=== PATIENT | female | born 1995 | race African-American/Black ===

== ENCOUNTER 2021-03-18 19:59 | Emergency (ER) | payer OTHER ==
[~2021-03-18] VITALS: Ht 152.4 cm; Wt 65.2 kg
[2021-03-18 20:07] VITALS: BP 113/80
[2021-03-18 22:21] LABS: CLARITY URINE CLEAR (CLEAR); COLOR URINE YELLOW (YELLOW); KETONES URINE TRACE (NEGATIVE); LEUKOCYTE ESTERASE URINE NEGATIVE (NEGATIVE); NITRITE URINE NEGATIVE (NEGATIVE); OCCULT BLOOD URINE 1+ (NEGATIVE); PROTEIN URINE NEGATIVE (NEGATIVE); SPECIFIC GRAVITY URINE 1.029 (1.005-1.030); UROBILINOGEN URINE 0.2 E.U./dL (0.2-1.0)
[2021-03-18] MEDS ORDERED: KETOROLAC 30MG/ML VIAL IM ONE (22:45)
[2021-03-19 00:05] LABS: BASOPHILS % 0.3 % (0.0-2.0); EOSINOPHILS % 0.2 % (0.0-5.0); HEMATOCRIT. 38.5 % (36.0-48.0); HEMOGLOBIN. 13.2 g/dL (12.0-16.0); LYMPHOCYTES % 20.9 % (20.0-50.0); MEAN CORPUSCULAR HEMOGLOBIN 30.7 pg (28.0-32.0); MEAN CORPUSCULAR VOLUME 89.2 fL (81.0-99.0); MEAN PLATELET VOLUME 7.9 fl (7.4-10.4); MONOCYTES % 6.1 % (2.0-8.0); NEUTROPHILS % 72.5 % (40.0-76.0); PLATELET 314 x1000/uL (130-400); RED BLOOD CELL COUNT 4.32 mill/uL (4.2-5.4); RED CELL DISTRIBUTION WIDTH 12.8 % (11.6-14.6)
[2021-03-19 00:13] LABS: CHLORIDE 104 mEq/L (98-107)
[2021-03-19] MEDS ORDERED: ONDA4TAB5 MT (00:55)
== END 2021-03-19 01:02 | disposition home or self-care (01) ==
LOC: ER 19:59
DX: R09.1 Pleurisy (principal)
CPT/HCPCS: 36415; 71045; 76705; 80053; 81003; 81025; 83690; 85025; 96372; 99285; J1885

== ENCOUNTER 2021-04-29 21:11 | Emergency (ER) | payer OTHER ==
[~2021-04-29] VITALS: Ht 152.4 cm; Wt 65.5 kg
[~2021-04-29 21:11] MED LIST: ONDA4TAB5 MT
[2021-04-29 23:25] LABS: BASOPHILS % 0.5 % (0.0-2.0); EOSINOPHILS % 0.9 % (0.0-5.0); HEMOGLOBIN. 12.5 g/dL (12.0-16.0); LYMPHOCYTES % 18.6 % (20.0-50.0); MEAN CORPUSCULAR HEMOGLOBIN 30.1 pg (28.0-32.0); MEAN CORPUSCULAR VOLUME 89.2 fL (81.0-99.0); MONOCYTES % 5.1 % (2.0-8.0); NEUTROPHILS % 74.9 % (40.0-76.0); PLATELET 311 x1000/uL (130-400); RED BLOOD CELL COUNT 4.15 mill/uL (4.2-5.4); RED CELL DISTRIBUTION WIDTH 13.5 % (11.6-14.6)
[2021-04-29 23:47] LABS: CHLORIDE 105 mEq/L (98-107)
[2021-04-30] MEDS: ACETAMINOPHEN 325MG TABLET PO ONE
[2021-04-30 00:09] LABS: B-HCG QUANTITATIVE 53963 mIU/mL (<3)
[2021-04-30] MEDS ORDERED: PREN-118 MT (00:43)
[2021-04-30 01:37] VITALS: BP 133/87
== END 2021-04-30 01:39 | disposition home or self-care (01) ==
LOC: ER 21:11
DX: O26.891 Other specified pregnancy related conditions, first trimester (principal); Z3A.01 Less than 8 weeks gestation of pregnancy; Z98.890 Other specified postprocedural states
CPT/HCPCS: 36415; 76801; 80053; 81025; 84702; 85025; 86850; 86900; 99284

== ENCOUNTER 2021-10-29 15:52 | Observation (INO) | payer OTHER ==
[~2021-10-29] VITALS: Ht 152.4 cm; Wt 66.7 kg
[~2021-10-29 15:52] MED LIST changes: +PREN-118 MT
[2021-10-29] MEDS ORDERED: LACTATED RINGERS 1,000 ML IV SCH (17:00)
== END 2021-10-29 17:45 | disposition home or self-care (01) ==
LOC: 8 EST A/PP 15:52
PROVIDERS: ADMIT Obstetrics & Gynecology; ATTEND Obstetrics & Gynecology
DX: O26.893 Other specified pregnancy related conditions, third trimester (principal); R10.9 Unspecified abdominal pain; O62.9 Abnormality of forces of labor, unspecified; Z3A.32 32 weeks gestation of pregnancy
CPT/HCPCS: 59025; 96360; G0378; 99281

== ENCOUNTER 2021-12-17 02:48 | Observation (INO) | payer BC, OTHER ==
[~2021-12-17] VITALS: Ht 152.4 cm; Wt 73.9 kg
[2021-12-17] MEDS ORDERED: CALC-26 PO (03:22)
[2021-12-17] MEDS ORDERED: FERR325T6 PO (03:22)
[2021-12-17] MEDS ORDERED: FOLIC ACID (03:22)
[2021-12-21] MEDS ORDERED: IBUP-2030 MT (10:04)
== END 2021-12-17 06:19 | disposition home or self-care (01) ==
LOC: 8 EST LDRP 02:48
PROVIDERS: ADMIT Obstetrics & Gynecology; ATTEND Obstetrics & Gynecology
DX: O26.893 Other specified pregnancy related conditions, third trimester (principal); R10.9 Unspecified abdominal pain; O62.9 Abnormality of forces of labor, unspecified; Z3A.39 39 weeks gestation of pregnancy
CPT/HCPCS: 59025; G0378; 99281

== ENCOUNTER 2021-12-18 08:00 | Inpatient (IN) | payer BC, OTHER ==
[~2021-12-18] VITALS: Ht 152.4 cm; Wt 73.9 kg
[~2021-12-18 08:00] MED LIST changes: +CALC-26 PO; +FERR325T6 PO; +FOLIC ACID; -ONDA4TAB5 MT
[2021-12-18] MEDS ORDERED: OXYTOCIN 30 UNITS/500ML NS PMX 500 ML IV SCH (09:45)
[2021-12-18] MEDS ORDERED: NALOXONE HCL 0.4 MG/ML 1ML VIAL IM PRN (09:45)
[2021-12-18] MEDS ORDERED: LIDOCAINE HCL 1% 20ML VIAL (Pyxis) INJ INFIL SCH (09:45)
[2021-12-18] MEDS ORDERED: METHYLERGONOVINE MALEATE 0.2 MG/ML IM PRN (09:45)
[2021-12-18] MEDS ORDERED: CARBOPROST TROMETHAMINE 250 MCG/ML AMPUL IM PRN (09:45)
[2021-12-18] MEDS ORDERED: AMPICILLIN 2GM in NS 100ML 100 ML IV NR (10:00)
[2021-12-18] MEDS ORDERED: ROPIVACAINE HCL/PF EPIDURAL 200 ML EPI SCH (10:15)
[2021-12-18 10:21] LABS: BASOPHILS % 0.3 % (0.0-2.0); EOSINOPHILS % 0.1 % (0.0-5.0); HEMOGLOBIN. 12.2 g/dL (12.0-16.0); LYMPHOCYTES % 10.9 % (20.0-50.0); MEAN CORPUSCULAR HEMOGLOBIN 30.7 pg (28.0-32.0); MEAN CORPUSCULAR VOLUME 90.5 fL (81.0-99.0); MEAN PLATELET VOLUME 10.1 fl (7.4-10.4); MONOCYTES % 4.6 % (2.0-8.0); NEUTROPHILS % 84.1 % (40.0-76.0); PLATELET 210 x1000/uL (130-400); RED BLOOD CELL COUNT 3.98 mill/uL (4.2-5.4); RED CELL DISTRIBUTION WIDTH 14.6 % (11.6-14.6)
[2021-12-18 10:30] LABS: INR 0.9; PROTHROMBIN TIME 9.7 sec (9.6-11.0)
[2021-12-18] MEDS: LACTATED RINGERS 1,000 ML IV SCH ×3 (10:35→21:45)
[2021-12-18] MEDS ORDERED: ONDANSETRON HCL 4MG/2ML INJ IV PRN (10:45)
[2021-12-18 10:59] LABS: CLARITY URINE CLOUDY (CLEAR); COLOR URINE YELLOW (YELLOW); KETONES URINE NEGATIVE (NEGATIVE); NITRITE URINE NEGATIVE (NEGATIVE); OCCULT BLOOD URINE 2+ (NEGATIVE); PH URINE 6.5 (4.5-8.0); PROTEIN URINE TRACE (NEGATIVE); SPECIFIC GRAVITY URINE 1.015 (1.005-1.030)
[2021-12-18 11:00] LABS: LEUKOCYTE ESTERASE URINE 2+ (NEGATIVE); UROBILINOGEN URINE 0.2 E.U./dL (0.2-1.0)
[2021-12-18 11:04] LABS: *AMPHETAMINES SCREEN URINE NEGATIVE (NEGATIVE); *BARBITURATES SCREEN URINE NEGATIVE (NEGATIVE); *BENZODIAZEPINES SCREEN URINE NEGATIVE (NEGATIVE); *COCAINE SCREEN URINE NEGATIVE (NEGATIVE); CANNABINOID URINE SCREEN NEGATIVE (NEGATIVE); METHADONE URINE SCREEN NEGATIVE (NEGATIVE); OPIATES URINE SCREEN NEGATIVE (NEGATIVE); PHENCYCLIDINE URINE SCREEN NEGATIVE (NEGATIVE)
[2021-12-18] MEDS ORDERED: EPHEDRINE SULFATE 50MG/ML VIAL ONE (12:00)
[2021-12-18] MEDS: BUTORPHANOL TARTRATE 2 MG/ML VIAL IV PRN ×2 (12:09→15:33)
[2021-12-18 13:45] LABS: HEPATITIS B SURFACE ANTIGEN NEGATIVE
[2021-12-18] MEDS: AMPICILLIN 1,000 MG in SODIUM CHLORIDE 0.9% 50 ML IV SCH ×2 (15:54→22:02)
[2021-12-18] MEDS ORDERED: FENTANYL CITRATE/PF 50MCG/ML 2ML VIAL ONE (16:57)
[2021-12-18] MEDS ORDERED: ROPIVACAINE HCL/PF EPIDURAL 200 ML EPI ONE (16:57)
[2021-12-19] MEDS ORDERED: BENZOCAINE/LANOLIN/ALOE VERA SPRAY TOP PRN (04:15)
[2021-12-19] MEDS ORDERED: RHO(D) IMMUNE GLOBULIN 300 MCG/SYR IM PRN (04:15)
[2021-12-19] MEDS ORDERED: IBUPROFEN 400MG TABLET PO PRN (04:15)
[2021-12-19 07:15] VITALS: BP 110/61
[2021-12-19 08:00] VITALS: BP 115/72
[2021-12-19 16:00] VITALS: BP 115/72
[2021-12-19] MEDS: IBUPROFEN 800MG TABLET PO PRN ×2 (17:26→22:32)
[2021-12-19] MEDS: PRENATAL VIT/FE FUMARATE/FA TABLET PO SCH (17:27)
[2021-12-19 20:00] VITALS: BP 126/72
[2021-12-20 04:00] VITALS: BP 114/75
[2021-12-20] MEDS: IBUPROFEN 800MG TABLET PO PRN ×3 (06:11→22:39)
[2021-12-20 06:41] LABS: BASOPHILS % 0.3 % (0.0-2.0); HEMATOCRIT. 32.8 % (36.0-48.0); HEMOGLOBIN. 11.1 g/dL (12.0-16.0); MEAN CORPUSCULAR HEMOGLOBIN 31.5 pg (28.0-32.0); MEAN CORPUSCULAR VOLUME 92.6 fL (81.0-99.0); MEAN PLATELET VOLUME 9.7 fl (7.4-10.4); MONOCYTES % 8.2 % (2.0-8.0); NEUTROPHILS % 71.5 % (40.0-76.0); PLATELET 170 x1000/uL (130-400); RED BLOOD CELL COUNT 3.54 mill/uL (4.2-5.4); RED CELL DISTRIBUTION WIDTH 15.2 % (11.6-14.6)
[2021-12-20 08:15] VITALS: BP 125/69
[2021-12-20] MEDS: PRENATAL VIT/FE FUMARATE/FA TABLET PO SCH (09:05)
[2021-12-20] MEDS: FERROUS SULFATE 325MG TABLET PO SCH ×3 (09:05→17:36)
[2021-12-20 16:14] VITALS: BP 114/69
[2021-12-20 20:00] VITALS: BP 124/77
[2021-12-21 04:00] VITALS: BP 130/80
[2021-12-21] MEDS: IBUPROFEN 800MG TABLET PO PRN (04:28)
[2021-12-21 08:00] VITALS: BP 120/59
[2021-12-21] MEDS: PRENATAL VIT/FE FUMARATE/FA TABLET PO SCH (08:04)
[2021-12-21] MEDS: FERROUS SULFATE 325MG TABLET PO SCH (08:04)
[2021-12-21] MEDS ORDERED: IBUP-2030 MT (10:04)
== END 2021-12-21 12:45 | disposition home or self-care (01) | DRG 806 ==
LOC: OBSVTOIN 08:00 → 8 EST LDRP 08:00 → 8EST 12-19 07:00
PROVIDERS: ADMIT Obstetrics & Gynecology; ATTEND Obstetrics & Gynecology
PROC: 10E0XZZ Delivery of Products of Conception, External Approach (ICD-10-PCS; principal; 2021-12-19)
PROC: 0W8NXZZ Division of Female Perineum, External Approach (ICD-10-PCS; 2021-12-19)
PROC: 3E0R3BZ Introduction of Anesthetic Agent into Spinal Canal, Percutaneous Approach (ICD-10-PCS; 2021-12-19)
PROC: 00HU33Z Insertion of Infusion Device into Spinal Canal, Percutaneous Approach (ICD-10-PCS; 2021-12-19)
DX: O77.0 Labor and delivery complicated by meconium in amniotic fluid (principal); O99.354 Diseases of the nervous system complicating childbirth; Z37.0 Single live birth; Z20.822 Contact with and (suspected) exposure to COVID-19; O90.89 Other complications of the puerperium, not elsewhere classified; Z3A.39 39 weeks gestation of pregnancy; G80.8 Other cerebral palsy; Z82.49 Family history of ischemic heart disease and other diseases of the circulatory system; Z82.5 Family history of asthma and other chronic lower respiratory diseases; Z83.3 Family history of diabetes mellitus
CPT/HCPCS: 36415; 80305; 81003; 85025; 86592; 86703; 86762; 86850; 86900; 87077; 87340; 87426; J0290; J0595; J2405; J2795; J3010; J3490; J7120; A4315; J2590